=== PATIENT | female | born 1965 | race Caucasian/White ===

== ENCOUNTER 2019-03-10 18:55 | Emergency (ER) | payer SELFPAY ==
[~2019-03-10] VITALS: Ht 160 cm; Wt 100.2 kg
[2019-03-10 20:13] VITALS: BP 152/89
[2019-03-10] MEDS ORDERED: KETOROLAC TROMETHAMINE 60 MG/2 ML VIAL IM ONE (20:15)
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
--- NOTE | 2019-03-10 23:25 | Diagnostic Imaging Report ---
X-ray right wrist 3 views HISTORY: Pain. COMPARISON: None available. FINDINGS: Bones: No acute displaced fracture. Osseous alignment is within normal limits. Joints: The joint spaces are well-maintained. Soft tissues: The soft tissues appear unremarkable. IMPRESSION: No acute radiographic osseous abnormality. Signed by: Memo Spring DO on 03/10/2019 11:22 PM
--- NOTE | 2019-03-10 23:25 | Diagnostic Imaging Report ---
Cervical Spine, 5 views HISTORY: Pain. COMPARISON: None. FINDINGS: Limited sensitivity for detection of subtle fractures and ligamentous abnormalities. On the lateral view, the cervical spine is entirely visualized. Stranding of the lower cervical lordosis. No acute displaced fracture involving the visualized cervical spine. Disc Spaces and Uncovertebral Joints: Decreased disc height at C5-C6 and C6-C7. Disc osteophytes from C5-C7 Facets: Mild sclerotic facet changes in the lower cervical spine. Normal facet joint alignment. IMPRESSION: No acute radiographic osseous abnormality. Degenerative changes in lower cervical spine. Signed by: Memo Spring DO on 03/10/2019 11:21 PM
--- NOTE | 2019-03-10 23:27 | Diagnostic Imaging Report ---
X-ray right foot 3 views HISTORY: Pain. COMPARISON: None available. FINDINGS: Bones: No acute displaced fracture. Osseous alignment is within normal limits. Joints: The joint spaces are well-maintained. Soft tissues: Small plantar calcaneal enthesophyte. IMPRESSION: No acute radiographic osseous abnormality. Plantar calcaneal enthesophytosis. Signed by: Memo Spring DO on 03/10/2019 11:24 PM
== END 2019-03-11 00:01 | disposition home or self-care (01) ==
LOC: ER 18:55
DX: M54.2 Cervicalgia (principal); M54.6 Pain in thoracic spine; S13.4XXA Sprain of ligaments of cervical spine, initial encounter; S66.411A Strain of intrinsic muscle, fascia and tendon of right thumb at wrist and hand level, initial encounter; M79.671 Pain in right foot; V43.52XA Car driver injured in collision with other type car in traffic accident, initial encounter; Y92.488 Other paved roadways as the place of occurrence of the external cause
CPT/HCPCS: 71046; 72050; 73110; 73630; 99283; J1885